=== PATIENT | female | born 1980 | race Caucasian/White ===

== ENCOUNTER 2019-01-10 09:11 | Emergency (ER) | payer BC, OTHER ==
[2019-01-10 10:22] VITALS: BP 100/67
--- NOTE | 2019-01-10 10:39 | UC ---
Throat Pain/Nasal Bruno HPI - HPI Summary HPI Summary: Patient presents with 3 days progressive head congestion right side worse than left. Patient states pressure in her right cheek watering from her right eye pressure right ear and dental achiness of the upper teeth on the right. No fevers or chills. Patient has a history of allergies been taking allergy medication with little effect. Patient's been taking Motrin Tylenol. No documented fever patient reports chills. No sick contacts. No cough or shortness of breath. Patient with fatigue. Patient states she is not . Patient's medications reviewed this visit. - History of Current Complaint Chief Complaint: UCGeneralIllness Stated Complaint: SINUS,CONGESTION Time Seen by Provider: 01/10/19 10:33 Hx Obtained From: Patient Hx Last Menstrual Period: mirena Pain Intensity: 8 - Allergies/Home Medications Allergies/Adverse Reactions: Allergies Allergy/AdvReac Type Severity Reaction Status Date / Time Penicillins Allergy Rash Verified 01/10/19 10:38 Sulfa (Sulfonamide Allergy Rash Verified 01/10/19 10:38 Antibiotics) Home Medications: Home Medications Ibuprofen TAB* [Advil TAB*] 600 mg PO Q6H PRN 01/10/19 [History Confirmed ] Loratadine 10 mg PO DAILY 01/10/19 [History Confirmed 01/10/19] guaiFENesin [Mucinex] 600 mg PO Q12HR PRN 01/10/19 [History Confirmed 01/10/19] PMH/Surg Hx/FS Hx/Imm Hx Previously Healthy: Yes - Surgical History Surgical History: Yes Surgery Procedure, Year, and Place: x2 C-Sections. T&A. lypoma - Family History Known Family History: Positive: Non-Contributory - Social History Lives: With Family Alcohol Use: Occasionally Substance Use Type: None Smoking Status (MU): Never Smoked Tobacco Review of Systems All Other Systems Reviewed And Are Negative: Yes Constitutional: Positive: Chills, Fatigue Skin: Positive: Negative ENT: Positive: Ear Ache, Nasal Discharge, Sinus Congestion, Sinus Pain/ Tenderness Physical Exam - Summary Physical Exam Summary: Vital Signs Reviewed: Yes A+Ox3, no distress Eyes: Conjunctiva Clear, PHIL. EOM intact and full ENT: Hearing grossly normal scant fluid right TM, left TM wnl, turbinates inflammed and boggy, + PND, + right max sinus pain with palp, mmoist, uvula midline, no exudate, no erythema Neck: Positive: Supple Respiratory: Positive: No respiratory distress, No accessory muscle use + CTA throughout no w/r Cardiovascular: RRR nl s1, s2 no m/r CBT <2 sec abd soft + BS nt/nd no guarding, no distension Musculoskeletal Exam: SANDOVAL x 4 without difficulty Strength Intact, ROM Intact Neurological: Positive: Alert, + sensation throughout Psychological: Positive: Normal Response To Family Skin: Positive: no rash, no ecchymosis Triage Information Reviewed: Yes Vital Signs: Initial Vital Signs Temp 98.3 F 01/10/19 10:17 Pulse 90 01/10/19 10:17 Resp 15 01/10/19 10:17 BP 100/67 01/10/19 10:17 Pulse Ox 100 01/10/19 10:17 Throat Pain/Nasal Course/Dx - Course Course Of Treatment: Patient presents to urgent care with progressive facial pain right worse than left. Patient with sinus congestion ear pain dental pain for the last 3-4 days per patient some taking allergy medicine without relief. On exam vital signs are stable. Patient with right-sided maxillary sinus pain turbinates inflamed and boggy with thick postnasal drip. Discussed with patient at length. Recommend patient take Flonase as well as continue with a decongestant. Patient sent a prescription for antibiotics. If symptoms persist develops fever or secretions change of the last 4 years recommend patient initiating bites. Patient given prescription for Diflucan as needed for antibiotic related yeast infection. Patient states agreement comfortable and plan. - Differential Dx/Diagnosis Provider Diagnosis: Rhinosinusitis Discharge - Sign-Out/Discharge Documenting (check all that apply): Patient Departure All imaging exams completed and their final reports reviewed: No Studies - Discharge Plan Condition: Stable Disposition: HOME Prescriptions: Cefdinir [Cefdinir 300 MG CAP] 300 mg PO BID #14 capsule Fluconazole [Diflucan 150 MG (NF)] 150 mg PO ONCE PRN #1 tab PRN Reason: vaginal yeast infection Fluticasone NASAL SPRAY 50MCG* [Flonase NASAL SPRAY 50MCG*] 2 spray BOTH NARES DAILY #1 btl Patient Education Materials: Rhinosinusitis (ED) Referrals: Jessica Armstrong [Primary Care Provider] - Additional Instructions: - Stay well hydrated. Drink plenty of non-alcoholic, non-caffinated beverages. - Alternate ibuprofen (Advil, Motrin) 600mg and Tylenol every 3 hours for pain or fever. Take with food. Do NOT take for more than 4-5 days. - These infections are spread by secretions - do NOT share eating or drinking utensils - clean items you share with other people such as cell phones, computer mouse, TV remote, computer tablets,etc. Once you have been antibiotics for 2 days, change your toothbrush and your pillowcase. - get plenty of restful sleep - humidify the air in the room where you sleep - boil water, run a hot steam shower, vaporizer, cups of water by heat register - Take nasal spray as instructed - It is recommended you add a decongestant to your regimen (Claritin-D, Shani- D, Zyrtec-D, Sudafed) If your symptoms persist or worsen, okay to start Antibiotic on Thursday You have been prescribed diflucan - okay to take if you develop an antibiotic related yeast infection - contact your doctor or return with questions or concerns - Billing Disposition and Condition Condition: STABLE Disposition: Home
== END 2019-01-10 10:44 | disposition home or self-care (01) ==
LOC: UCCORT 09:11
DX: J32.9 Chronic sinusitis, unspecified (principal); Z88.0 Allergy status to penicillin; Z88.2 Allergy status to sulfonamides
CPT/HCPCS: 99212; G0463

== ENCOUNTER 2019-08-06 11:22 | Emergency (ER) | payer BC ==
[2019-08-06 12:09] VITALS: BP 115/71
--- NOTE | 2019-08-06 12:41 | UC ---
Hand/Wrist HPI - HPI Summary HPI Summary: Pt presents with c/o pain and decreased ROM in right distal 3rd finger. Pt caught finger in door jam yesterday. - History Of Current Complaint Chief Complaint: UCGeneralIllness Stated Complaint: RIGHT MIDDLE FINGER INJURY Time Seen by Provider: 08/06/19 12:31 Hx Obtained From: Patient Hx Last Menstrual Period: Mirana ?: No Onset/Duration: Sudden Onset, Still Present Severity Initially: Moderate Severity Currently: Mild Pain Intensity: 3 Character Of Pain: Dull, Aching, Stiffness Aggravating Factor(s): Movement Alleviating Factor(s): Rest Associated Signs And Symptoms: Positive: Swelling, Bruising Related History: Dominant Hand Right - Risk Factors Compartment Syndrome Risk Factors: Pain - Allergies/Home Medications Allergies/Adverse Reactions: Allergies Allergy/AdvReac Type Severity Reaction Status Date / Time Penicillins Allergy Rash Verified 08/06/19 12:09 Sulfa (Sulfonamide Allergy Rash Verified 08/06/19 12:09 Antibiotics) Home Medications: Home Medications NK [No Home Medications Reported] 08/06/19 [History Confirmed 08/06/19] PMH/Surg Hx/FS Hx/Imm Hx Previously Healthy: Yes - Surgical History Surgical History: Yes Surgery Procedure, Year, and Place: x2 C-Sections. T&A. lypoma - Family History Known Family History: Positive: Non-Contributory - Social History Occupation: Employed Full-time Lives: With Family Alcohol Use: Occasionally Substance Use Type: None Smoking Status (MU): Never Smoked Tobacco Have You Smoked in the Last Year: No - Immunization History Vaccination Up to Date: Yes Review of Systems All Other Systems Reviewed And Are Negative: Yes Constitutional: Positive: Negative Skin: Positive: Bruising Eyes: Positive: Negative ENT: Positive: Negative Respiratory: Positive: Negative Cardiovascular: Positive: Negative Gastrointestinal: Positive: Negative Genitourinary: Positive: Negative Motor: Positive: Decreased ROM Musculoskeletal: Positive: Arthralgia, Decreased ROM, Edema, Myalgia Neurological: Positive: Negative Psychological: Positive: Negative Is Patient Immunocompromised?: No Physical Exam Triage Information Reviewed: Yes Appearance: Well-Appearing Vital Signs: Initial Vital Signs Temp 98.8 F 08/06/19 12:06 Pulse 97 08/06/19 12:06 Resp 18 08/06/19 12:06 BP 115/71 08/06/19 12:06 Pulse Ox 99 08/06/19 12:06 Vital Signs Reviewed: Yes Eye Exam: Normal ENT Exam: Normal Dental Exam: Normal Neck exam: Normal Respiratory: Positive: No respiratory distress Musculoskeletal: Positive: ROM Limited @ - right DIP 3rd finger, Edema @ - right DIP joint 3rd finger Neurological Exam: Normal Psychological Exam: Normal Skin Exam: Other - mild bruising to right dip joint 3rd finger Diagnostics - Radiology No standard instances Radiology Interpretation Completed By: Radiologist - Boat Engine Mechanic: Mauro Nichols, ([id number]) Director Of Recreation Therapy: PATRICIA (LEANDROANCE) Report Date: 2018 13:24:00 Report Status: Final ======= Start of Report Content Patient Name: CARTER SANCHES Medical Record#: [id number] Ordering Physician: Brandie Garcia [employer] Acct.#: [id number] : 1980 Age: 38 Sex: F Location: [facility] Exam Date: 08/06/19 1235 ADM Status: REG ER Order Information: FINGER RIGHT MIDDLE Accession Number: [id number] CPT: 62115 INDICATION: Right middle finger shut in door COMPARISON: None. TECHNIQUE: 3 views of the right middle finger were obtained. FINDINGS: The bones are normal alignment. Joint spaces appear maintained. No fracture is seen. IMPRESSION: NO EVIDENCE FOR FRACTURE, IF THE PATIENT'S SYMPTOMS PERSIST RECOMMEND FOLLOW-UP IMAGING. < Electronically signed by Mauro Nichols MD in OV> 08/06/19 1321 Dictated By: Mauro Nichols MD Dictated Date/Time: 08/06/19 1320 Transcribed Date/Time: 1320 Copy to: CC:Suzanne Koch MD; Bharathi FINN; Brandie Fisher NP Imaging - [facility] Imaging - [facility] Imaging - [facility] [address] [place] [id number] [id number] [place] [id number] ph ([phone]) ph ) ph ([phone]) End of Report Content Hand/Wrist Course/Dx - Differential Dx/Diagnosis Differential Diagnosis/HQI/PQRI: Contusion, Fracture Provider Diagnosis: Contusion of right middle finger Discharge ED - Sign-Out/Discharge Documenting (check all that apply): Patient Departure All imaging exams completed and their final reports reviewed: Yes - Discharge Plan Condition: Stable Disposition: HOME Patient Education Materials: Arthralgia (ED), Ice Pack Application (ED), Safe Use of NSAIDs (ED) Referrals: Gurvinder Wood MD [Medical Doctor] - If Needed Jessica Armstrong [Primary Care Provider] - If Needed - Billing Disposition and Condition Condition: STABLE Disposition: Home
== END 2019-08-06 13:29 | disposition home or self-care (01) ==
LOC: UCCORT 11:22
DX: S60.031A Contusion of right middle finger without damage to nail, initial encounter (principal); W23.0XXA Caught, crushed, jammed, or pinched between moving objects, initial encounter; Y92.9 Unspecified place or not applicable; Z88.0 Allergy status to penicillin; Z88.2 Allergy status to sulfonamides
CPT/HCPCS: 73140; 99212; G0463